=== PATIENT | female | born 1980 | race Caucasian/White ===

== ENCOUNTER 2020-01-04 05:55 | Day surgery (SDC) | payer BC, SELFPAY ==
[~2020-01-04] VITALS: Ht 160 cm; Wt 58.1 kg
[2020-01-04] MEDS ORDERED: CEFAZOLIN SOD 2 GM in D5W 50 ML IV ONE (07:00)
[2020-01-04] MEDS ORDERED: ROPIVACAINE HCL/PF 0.2% 200 ML ONE (07:18)
[2020-01-04] MEDS ORDERED: DEXAMETHASONE SOD PHOSPHATE 4 MG/ML VIAL IVP ONE (07:31)
[2020-01-04] MEDS ORDERED: WATER FOR IRRIGATION,STERILE 1,000 ML IRRIG.SOLN IR ONE (07:31)
[2020-01-04] MEDS ORDERED: KETOROLAC TROMETHAMINE 30 MG VIAL IVP ONE ×2 (07:31→14:00)
[2020-01-04] MEDS ORDERED: SUGAMMADEX SODIUM 200 MG/2 ML VIAL IV ONE (07:31)
[2020-01-04] MEDS ORDERED: PROPOFOL 200MG/ 20ML VIAL (DIPRIVAN) IV ONE (07:31)
[2020-01-04] MEDS ORDERED: ROCURONIUM BROMIDE 10 MG/ML (ZEMURON) IV ONE (07:31)
[2020-01-04] MEDS ORDERED: LIDOCAINE 1% 10 MG/ML, 20 ML MDV IM ONE (07:31)
[2020-01-04] MEDS ORDERED: BUPIVACAINE /EPINEPHRINE/PF 0.25% 30 ML VIAL INJ ONE (07:31)
[2020-01-04] MEDS ORDERED: SUCCINYLCHOLINE CHLORIDE 20 MG/ML(QUELICIN) IVP ONE (07:31)
[2020-01-04] MEDS ORDERED: NS IRRIG SOLN 1000 ML IR ONE (07:31)
[2020-01-04] MEDS ORDERED: MORPHINE SULFATE 10 MG/ML VIAL IVP ONE (07:31)
[2020-01-04] MEDS ORDERED: NS 1000 ML IV.SOLN IV ONE (07:31)
[2020-01-04] MEDS ORDERED: ePHEDrine sulfate 50 MG/ML VIAL IM ONE (07:31)
[2020-01-04] MEDS ORDERED: SEVOFLURANE 15 MIN GAS INH ONE (07:31)
[2020-01-04] MEDS ORDERED: PHENTOLAMINE MESYLATE 5 MG VIAL INJ ONE (07:31)
[2020-01-04 07:45] LABS: HCG,QUAL RESULT NEGATIVE (NEGATIVE)
[2020-01-04] MEDS ORDERED: MORPHINE 4 MG/ML INJ. SYRINGE IVP PRN (07:45)
[2020-01-04] MEDS ORDERED: HYDROmorphone 1 MG INJ. 1 MG/ML AMPUL IVP PRN (07:45)
[2020-01-04] MEDS ORDERED: ONDANSETRON HCL 4 MG/2 ML VIAL IVP PRN ×2 (07:45→10:30)
[2020-01-04] MEDS ORDERED: LR 500 ML IV SCH (07:45)
[2020-01-04] MEDS ORDERED: MEPERIDINE HCL/PF 25 MG/ML DISP.SYRIN IVP PRN (07:45)
[2020-01-04] MEDS ORDERED: KETOROLAC TROMETHAMINE 30 MG VIAL IVP PRN (07:45)
[2020-01-04] MEDS ORDERED: POLYMYXIN 500,000/BACIT.10,000 UNITS in NS IRR 1 L IR ONE (09:16)
[2020-01-04] MEDS ORDERED: HYDROcodone/ACETAMIN 5-325 MG TAB (NORCO/ VICODIN) PO PRN (10:30)
[2020-01-04] MEDS ORDERED: OXYCODONE/ACETAMINOPHEN 5-325 TABLET PO PRN ×2 (10:30)
[2020-01-04] MEDS ORDERED: ACETAMINOPHEN 325 MG TABLET PO ONE (13:00)
[2020-01-04] MEDS ORDERED: SIMETHICONE 80 MG TAB.CHEW PO SCH (13:00)
[2020-01-04 14:00] VITALS: BP_SYST 100
[2020-01-04] MEDS ORDERED: CEFAZOLIN 2 GM IVPB PREMIX 50 ML IV ONE (15:00)
[2020-01-04] MEDS ORDERED: MEPERIDINE HCL/PF 100 MG/ML AMP IV ONE (15:50)
[2020-01-04] MEDS ORDERED: ONDANSETRON HCL 4 MG/2 ML VIAL IVP ONE (15:50)
[2020-01-04] MEDS ORDERED: MEPERIDINE HCL/PF 50 MG/ML AMP IVP ONE (16:00)
== END 2020-01-04 18:45 | disposition home or self-care (01) ==
LOC: SDS 05:55 → SMU 05:55 → SDS 18:45
PROVIDERS: ATTEND Specialist
DX: N81.4 Uterovaginal prolapse, unspecified (principal); N39.3 Stress incontinence (female) (male); N36.8 Other specified disorders of urethra; N94.12 Deep dyspareunia; D50.0 Iron deficiency anemia secondary to blood loss (chronic); N64.4 Mastodynia; Z92.0 Personal history of contraception; Z79.899 Other long term (current) drug therapy; Z20.828 Contact with and (suspected) exposure to other viral communicable diseases
CPT/HCPCS: 57240; 58552; 64488; 84703; 88302; 88307; C1727; C1771; C9399; J0330; J0690 ×2; J1100; J1885; J2001; J2175; J2270; J2405; J2704; J2760; J2795; J3490; J7030; J7060; S2900; U0003; E0190